=== PATIENT | female | born 1995 | race Caucasian/White ===

== ENCOUNTER 2019-03-12 22:49 | Emergency (ER) | payer SELFPAY ==
[~2019-03-12] VITALS: Ht 160 cm; Wt 119.5 kg
[2019-03-12 23:20] LABS: BASOPHILS # (AUTO) 0.04 x10^3/uL (0-0.1); BASOPHILS % (AUTO) 1 % (0-1); EOSINOPHILS # (AUTO) 0.08 x10^3/uL (0-0.4); EOSINOPHILS % (AUTO) 1 % (1-7); LYMPHOCYTES # (AUTO) 2.13 x10^3/uL (1-3.4); LYMPHOCYTES % (AUTO) 33 % (22-44); MD NO; MEAN CORPUSCULAR HEMOGLOBIN 30.5 pg (27.0-34.8); MEAN CORPUSCULAR HGB CONC 33.5 g/dL (32.4-35.8); MEAN CORPUSCULAR VOLUME 90.9 fL (80-100); MEAN PLATELET VOLUME 9.5 fL (7.4-10.4); MONOCYTES # (AUTO) 0.43 x10^3/uL (0.2-0.8); MONOCYTES % (AUTO) 7 % (2-9); NEUTROPHILS # (AUTO) 3.77 x10^3/uL (1.8-6.8); NEUTROPHILS % (AUTO) 59 % (42-75); PLATELET COUNT 228 x10^3/uL (130-400); RED BLOOD COUNT 4.74 x10^6/uL (3.82-5.3); RED CELL DISTRIBUTION WIDTH 12.9 % (9.6-15.2)
[2019-03-13 00:37] LABS: MICROSCOPIC INDICATED
[2019-03-13 00:47] LABS: CULTURE INDICATED? NO
[2019-03-13 00:52] VITALS: BP 128/65
== END 2019-03-13 00:54 | disposition home or self-care (01) ==
LOC: ED 23:57
DX: O20.0 Threatened abortion (principal); Z3A.08 8 weeks gestation of pregnancy; F17.200 Nicotine dependence, unspecified, uncomplicated
CPT/HCPCS: 36415; 76801; 81001; 84702; 85025; 86901; 99284

== ENCOUNTER 2019-10-04 16:13 | Outpatient (CLI) | payer BC ==
[~2019-10-04] VITALS: Ht 160 cm; Wt 114.1 kg
[2019-10-04 16:28] VITALS: BP 113/58
[2019-10-04 16:45] LABS: MICROSCOPIC INDICATED
[2019-10-04 16:51] LABS: AMPHETAMINE SCREEN, URINE Negative (Negative); BARBITURATE SCREEN, URINE Negative (Negative); BENZODIAZEPINE SCREEN, URINE Negative (Negative); CANNABINOID SCREEN, URINE Negative (Negative); COCAINE SCREEN, URINE Negative (Negative); METHADONE SCREEN, URINE Negative (Negative); OPIATE SCREEN, URINE Negative (Negative)
== END 2019-10-04 17:39 | disposition home or self-care (01) ==
LOC: LDOP 16:13
PROVIDERS: ATTEND Obstetrics & Gynecology
DX: O26.893 Other specified pregnancy related conditions, third trimester (principal); R10.9 Unspecified abdominal pain; Z3A.37 37 weeks gestation of pregnancy
CPT/HCPCS: 59025; 80307; 81001; 87086

== ENCOUNTER 2019-10-06 13:31 | Inpatient (IN) | payer BC ==
[~2019-10-06] VITALS: Ht 162.6 cm; Wt 117.0 kg
[2019-10-06 14:19] LABS: MICROSCOPIC INDICATED
[2019-10-06] MEDS ORDERED: FENTANYL PF 100 MCG/2ML ONE ×3 (14:26→17:07)
[2019-10-06 14:30] LABS: AMPHETAMINE SCREEN, URINE Negative (Negative); BARBITURATE SCREEN, URINE Negative (Negative); BENZODIAZEPINE SCREEN, URINE Negative (Negative); CANNABINOID SCREEN, URINE Negative (Negative); COCAINE SCREEN, URINE Negative (Negative); METHADONE SCREEN, URINE Negative (Negative); OPIATE SCREEN, URINE Negative (Negative)
[2019-10-06] MEDS ORDERED: FENTANYL PF 100 MCG/2ML IV PRN (14:30)
[2019-10-06] MEDS ORDERED: PLEASE ENTER HEIGHT AND WEIGHT MC SCH (14:30)
[2019-10-06] MEDS ORDERED: LACTATED RINGERS 1,000 ML IVBOLUS ONE (14:30)
[2019-10-06] MEDS ORDERED: OXYTOCIN 30U/ 0.9% NaCL 500ML 500 ML IV PRN (15:27)
[2019-10-06] MEDS ORDERED: LACTATED RINGERS 1,000 ML IV SCH ×2 (15:27→17:49)
[2019-10-06] MEDS ORDERED: D5%-LACTATED RINGERS 1,000 ML IV SCH (15:27)
[2019-10-06] MEDS ORDERED: OXYTOCIN 30U/ 0.9% NaCL 500ML 500 ML IV ONE (15:27)
[2019-10-06] MEDS ORDERED: SODIUM CITRATE/CITRIC ACID 30 ML UDC PO PRN (15:30)
[2019-10-06] MEDS ORDERED: TERBUTALINE 1 MG/ML, 1ML SQ PRN (15:30)
[2019-10-06] MEDS ORDERED: TERBUTALINE 1 MG/ML, 1ML IVPush PRN (15:30)
[2019-10-06] MEDS ORDERED: ALUMINUM/MAG/SIMETHICONE 30 ML UDC PO PRN (15:30)
[2019-10-06] MEDS ORDERED: ONDANSETRON 2MG/ML, 2ML IVPush PRN (15:30)
[2019-10-06] MEDS ORDERED: CALCIUM CARBONATE 500 MG TAB.CHEW PO PRN (15:30)
[2019-10-06] MEDS ORDERED: METOCLOPRAMIDE 5 MG/ML, 2ML IVPush PRN (15:30)
[2019-10-06] MEDS ORDERED: CALCIUM CARBONATE 500 MG TAB.CHEW ONE (15:57)
[2019-10-06 16:05] LABS: MEAN CORPUSCULAR HEMOGLOBIN 29.2 pg (27.0-34.8); MEAN CORPUSCULAR HGB CONC 32.6 g/dL (32.4-35.8); MEAN PLATELET VOLUME 10.6 fL (7.4-10.4); PLATELET COUNT 176 x10^3/uL (130-400); RED BLOOD COUNT 4.23 x10^6/uL (3.82-5.3); RED CELL DISTRIBUTION WIDTH 13.7 % (9.6-15.2)
[2019-10-06] MEDS: FENTANYL PF 100 MCG/2ML IVPush PRN ×2 (16:06→17:10)
[2019-10-06] MEDS ORDERED: OXYTOCIN 30U/ 0.9% NaCL 500ML 500 ML ONE (16:18)
[2019-10-06] MEDS ORDERED: NEWBORN KIT ONE (16:18)
[2019-10-06] MEDS ORDERED: LIDOCAINE 1%, 20ML ONE (16:18)
[2019-10-06] MEDS ORDERED: MISOPROSTOL 200 MCG TABLET ONE (16:18)
[2019-10-06] MEDS ORDERED: FENTANYL/BUPIV./NS/PF 250 ML EPIDCONT SCH ×2 (17:06→17:49)
[2019-10-06] MEDS ORDERED: LACTATED RINGERS 1,000 ML IVBOLUS PRN ×2 (17:30→18:00)
[2019-10-06] MEDS ORDERED: NICOTINE 14MG/24 HR PATCH.TD24 TD ONE (17:30)
[2019-10-06 17:31] LABS: BASOPHILS # (AUTO) 0.03 x10^3/uL (0-0.1); BASOPHILS % (AUTO) 0 % (0-1); EOSINOPHILS # (AUTO) 0.01 x10^3/uL (0-0.4); EOSINOPHILS % (AUTO) 0 % (1-7); LYMPHOCYTES % (AUTO) 11 % (22-44); MD SCAN; MONOCYTES # (AUTO) 0.47 x10^3/uL (0.2-0.8); MONOCYTES % (AUTO) 3 % (2-9); NEUTROPHILS # (AUTO) 12.96 x10^3/uL (1.8-6.8); NEUTROPHILS % (AUTO) 85 % (42-75)
[2019-10-06] MEDS ORDERED: FENTANYL/BUPIV./NS/PF 250 ML EPIDCONT ONE (17:51)
[2019-10-06] MEDS ORDERED: CEFAZOLIN 1,000 MG IM SCH (18:00)
[2019-10-06] MEDS ORDERED: NALOXONE 0.4 MG/ML, 1ML IVPush PRN (18:00)
[2019-10-06] MEDS ORDERED: EPHEDRINE 50 MG/ML, 1ML IVPush PRN (18:00)
[2019-10-06] MEDS: CEFAZOLIN PMX 1GM/50ML 50 ML IV SCH (18:43)
[2019-10-06 19:30] VITALS: BP 102/57
[2019-10-07] MEDS ORDERED: SIMETHICONE 80 MG CHEW TAB PO PRN (00:30)
[2019-10-07] MEDS ORDERED: ACETAMINOPHEN 325 MG TABLET PO PRN ×2 (00:30)
[2019-10-07] MEDS ORDERED: MISOPROSTOL 200 MCG TABLET PR PRN (00:30)
[2019-10-07] MEDS ORDERED: METHYLERGONOVINE 0.2 MG/ML IM PRN (00:30)
[2019-10-07] MEDS ORDERED: IBUPROFEN 600 MG TABLET ONE (00:45)
[2019-10-07] MEDS ORDERED: OXYTOCIN 30U/ 0.9% NaCL 500ML 500 ML ONE (00:45)
[2019-10-07] MEDS: OXYTOCIN 30U/ 0.9% NaCL 500ML 500 ML IV SCH ×3 (00:48→20:22)
[2019-10-07] MEDS: IBUPROFEN 600 MG TABLET PO PRN ×2 (00:49→08:37)
[2019-10-07 01:45] VITALS: BP 95/62
[2019-10-07] MEDS: CEFAZOLIN PMX 1GM/50ML 50 ML IV SCH ×3 (01:59→17:38)
[2019-10-07 04:10] VITALS: BP 103/67
[2019-10-07 07:10] LABS: BASOPHILS # (AUTO) 0.02 x10^3/uL (0-0.1); BASOPHILS % (AUTO) 0 % (0-1); EOSINOPHILS # (AUTO) 0.01 x10^3/uL (0-0.4); EOSINOPHILS % (AUTO) 0 % (1-7); LYMPHOCYTES # (AUTO) 1.82 x10^3/uL (1-3.4); LYMPHOCYTES % (AUTO) 12 % (22-44); MD NO; MEAN CORPUSCULAR HEMOGLOBIN 30.1 pg (27.0-34.8); MEAN CORPUSCULAR HGB CONC 33.8 g/dL (32.4-35.8); MEAN PLATELET VOLUME 10.8 fL (7.4-10.4); MONOCYTES # (AUTO) 0.73 x10^3/uL (0.2-0.8); MONOCYTES % (AUTO) 5 % (2-9); NEUTROPHILS # (AUTO) 12.66 x10^3/uL (1.8-6.8); NEUTROPHILS % (AUTO) 83 % (42-75); PLATELET COUNT 153 x10^3/uL (130-400); RED BLOOD COUNT 3.69 x10^6/uL (3.82-5.3); RED CELL DISTRIBUTION WIDTH 14.3 % (9.6-15.2)
[2019-10-07 07:45] VITALS: BP 101/65
[2019-10-07] MEDS: PRENATAL VIT/IRON/FA 1 EACH TABLET PO SCH (08:37)
[2019-10-07] MEDS: DOCUSATE 100 MG CAPSULE PO PRN ×2 (08:37→21:43)
[2019-10-07 12:10] VITALS: BP 97/65
[2019-10-07 16:15] VITALS: BP 101/73
[2019-10-07] MEDS ORDERED: FENTANYL/BUPIV./NS/PF 250 ML EPIDCONT ONE (17:56)
[2019-10-07 20:00] VITALS: BP 92/59
[2019-10-08] MEDS: CEFAZOLIN PMX 1GM/50ML 50 ML IV SCH (01:40)
[2019-10-08] MEDS: OXYTOCIN 30U/ 0.9% NaCL 500ML 500 ML IV SCH (06:22)
[2019-10-08 08:00] VITALS: BP 110/66
[2019-10-08] MEDS: DOCUSATE 100 MG CAPSULE PO PRN (08:17)
[2019-10-08] MEDS: PRENATAL VIT/IRON/FA 1 EACH TABLET PO SCH (08:17)
[2019-10-08] MEDS ORDERED: OXYC-302 PO (10:57)
[2019-10-08] MEDS ORDERED: IBUP-1223 PO (10:57)
== END 2019-10-08 12:39 | disposition home or self-care (01) | DRG 806 ==
LOC: LDOP 13:31 → INTOOBSV 14:19 → OBSVTOIN 14:19 → LDIP 14:19 → OBSVTOIN 10-07 00:22 → 2NW 10-07 01:36
PROVIDERS: ADMIT Obstetrics & Gynecology; ATTEND Obstetrics & Gynecology
PROC: 10E0XZZ Delivery of Products of Conception, External Approach (ICD-10-PCS; principal; 2019-10-07)
PROC: 3E033VJ Introduction of Other Hormone into Peripheral Vein, Percutaneous Approach (ICD-10-PCS; 2019-10-07)
DX: O99.214 Obesity complicating childbirth (principal); N39.0 Urinary tract infection, site not specified; Z37.0 Single live birth; Z3A.37 37 weeks gestation of pregnancy; O99.334 Smoking (tobacco) complicating childbirth; O76 Abnormality in fetal heart rate and rhythm complicating labor and delivery; Q66.00 Congenital talipes equinovarus, unspecified foot; O12.14 Gestational proteinuria, complicating childbirth; N20.9 Urinary calculus, unspecified; O62.0 Primary inadequate contractions; O75.3 Other infection during labor
CPT/HCPCS: 36415; 80307; 81001; 85025; 86592; 86850; 86900; 87086; 89060; G0378; J0690; J3010; J2590; J7120; Q0114